=== PATIENT | female | born 1985 | race Hispanic/Latino ===

== ENCOUNTER 2017-03-01 10:19 | Emergency (ER) | payer SELFPAY ==
--- NOTE | 2017-03-01 11:11 | ER NURSING DOCUMENTATION ---
Nurse's Notes [facility] Name:Radha Garza Age:31 yrs Sex:Female :1985 Arrival Date:03/01/2017 Time:10:19 Bed3 Private MD:Rosaline [facility] Diagnosis:Abdominal Cramps;Discomfort of Presentation: 03/01 10:23 Transition of care: patient was not received from another setting of care. tg 10:23 Acuity: ALEXANDRA 2 tg 10:23 Method Of Arrival: Private Vehicle tg 10:47 Presenting complaint: Patient states: Pt was awoken at 3am today with ABD pain. Pain tg became severe at 8am, but has now inproved and is mild. Triage Assessment: 10:45 General: Appears in no apparent distress, Behavior is cooperative. Pain: Complains of tg pain in abdomen. Neuro: Level of Consciousness is awake, alert. Cardiovascular: No deficits noted. Respiratory: Respiratory effort is even, unlabored. GI: Derm: Skin is pink, warm & dry. 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 Vitamin Oral - PMHx: NONE; - PSHx: hand surgery; - Tetanus: unknown. - Ebola Screening: : Patient negative for fever greater than or equal to 101.5 degrees Fahrenheit, and additional compatible Ebola Virus Disease symptoms. Patient denies exposure to infectious person. Patient denies travel to an Ebola-affected area in the 21 days before illness onset. No symptoms or risks identified at this time. . - Immunization history: Flu Vaccine unknown. - Social history: Smoking status: Patient states was never smoker of tobacco. Screenin:48 Infectious Disease Risk Unable to Obtain. Abuse screen: Denies threats or abuse. Denies tg injuries from another. Nutritional screening: No deficits noted. Assessment: 10:48 See Triage Assessment done by same RN. tg Vital Signs: 10:46 BP 114 / 61; Pulse 81; Resp 16; Temp 97.6(O); Pulse Ox 94% ; Weight 49.9 kg (R); Height tg 5 ft. 4 in. (162.56 cm) (R); Pain 3/10; 10:46 Body Mass Index 18.88 (49.90 kg, 162.56 cm) tg ED Course: 10:21 Patient arrived in ED. ama 10:22 [facility] is Private Physician. ama 10:23 Erik Gonzalez RN is Primary Nurse. tg 10:23 Triage completed. tg 10:25 Dwight Kinsey MD is Attending Physician. jm 10:48 Arm band placed on. tg 10:48 Valuables Remains with patient. tg 10:51 Carlos Contreras MD is Referral Physician. Administered Medications: 11:00 Drug: Acetaminophen 650 mg; Route: PO; tg 11:05 Follow up: Response: No adverse reaction; Medication administered at discharge. tg Outcome: 10:51 Discharge ordered by . 11:09 Discharged to home ambulatory, with significant other. tg 11: Condition: unchanged 11:09 Instructed on discharge instructions, follow up and referral plans. 11:10 Patient left the ED. tg Signatures: Erik Gonzalez RN RN tg Dwight Kinsey MD MD jm Averdick, Andrew, Reg Reg ama
--- NOTE | 2017-03-01 11:11 | ER PHYSICIAN DOCUMENTATION ---
Physician Documentation [facility] Name:Radha Garza Age:31 yrs Sex:Female :1985 Arrival Date:03/01/2017 Time:10:19 Bed3 Private MD:Rosaline [facility] ED Tio Dwight Disposition: 03/01/17 10:51 Discharged to Home/Self Care. Impression: Abdominal Cramps, Discomfort of . - Condition is Good. - Discharge Instructions: Abdomen - ABDOMINAL PAIN, Unknown Cause, (Female). - Medical Reconciliation form form. - Follow up: Carlos Contreras MD; When: 2 - 3 days; Reason: Continuance of care. - Problem is new. - Symptoms have improved. HPI: 03/01 11:25 This 31 yrs old Female presents to ER via Private Vehicle with complaints of jm Abdominal Cramping. 11:25 The patient presents to the emergency department with abdominal pain, that started 10 jm hour(s) ago. The estimated gestational age is 10 weeks. course: care: at a clinic, Ultrasound: the patient has not had an ultrasound. Associated signs and symptoms: Pertinent negatives: vaginal bleeding, but had some 4 days ago. . The patient has not experienced similar symptoms in the past. Pt worried about the cramps she had a few hours ago. She has none now. Pt has not had an US yet. . 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 Vitamin Oral - PMHx: NONE; - PSHx: hand surgery; - Tetanus: unknown. - Ebola Screening: : Patient negative for fever greater than or equal to 101.5 degrees Fahrenheit, and additional compatible Ebola Virus Disease symptoms. Patient denies exposure to infectious person. Patient denies travel to an Ebola-affected area in the 21 days before illness onset. No symptoms or risks identified at this time. . - Immunization history: Flu Vaccine unknown. - Social history: Smoking status: Patient states was never smoker of tobacco. ROS: 11:26 Abdomen/GI: Positive for abdominal cramps, Negative for nausea, vomiting. jm 11:26 : Negative for vaginal bleeding, vaginal discharge. 11:26 Neuro: Negative for syncope, near syncope. 11:26 Psych: Negative for depression, drug dependence. Exam: 11:26 Constitutional: The patient appears alert, awake, comfortable. jm 11:26 Abdomen/GI: Inspection: abdomen appears normal. 11:26 : Pelvic Exam: is not necessary for this patient, Bladder: is normal. 11:26 Neuro: Mentation: is normal, Memory: is normal. Vital Signs: 10:46 BP 114 / 61; Pulse 81; Resp 16; Temp 97.6(O); Pulse Ox 94% ; Weight 49.9 kg (R); Height tg 5 ft. 4 in. (162.56 cm) (R); Pain 3/10; 10:46 Body Mass Index 18.88 (49.90 kg, 162.56 cm) tg Procedures: 11:26 Ultrasound: Pelvic, obstetrical ultrasound performed. Indications include: abdominal jm pain, Views obtained: transabdominal uterus sagittal, transabdominal uterus transverse, Findings: intrauterine present, cardiac activity with a heart rate of 110bpm. indeterminate intrauterine . MDM: 10:24 Patient medically screened. 11:26 Differential diagnosis: normal vs threatened AB. Data reviewed: vital signs, jm nurses notes, radiologic studies, and as a result, I will discharge patient. Counseling: I had a detailed discussion with the patient and/or guardian regarding: the historical points, exam findings, and any diagnostic results supporting the discharge/admit diagnosis, radiology results, the need for outpatient follow up, an OB/Gyne specialist. ED course: On bedside US, the fetus looks good. Pt reassured, but encouraged to f/u w Dr. Garber . Dispensed Medications: 11:00 Drug: Acetaminophen 650 mg; Route: PO; tg 11:05 Follow up: Response: No adverse reaction; Medication administered at discharge. tg Signatures: Erik Gonzalez RN RN tg Dwight Kinsey MD MD jm
[2017-03-01] MEDS ORDERED: ACETAMINOPHEN 325 MG TABLET PO ONE (11:21)
== END 2017-03-01 11:11 | disposition home or self-care (01) ==
LOC: ER 10:19
DX: O99.89 Other specified diseases and conditions complicating pregnancy, childbirth and the puerperium (principal); R10.9 Unspecified abdominal pain
CPT/HCPCS: 99283